=== PATIENT | female | born 1945 | race Caucasian/White ===

== ENCOUNTER 2020-11-23 17:38 | Observation (INO) | payer MEDICARE, OTHER ==
[~2020-11-23] VITALS: Ht 154.9 cm; Wt 61.2 kg
[~2020-11-23 17:38] MED LIST: ZOFRAN4 MG PO
[2020-11-23 17:55] LABS: HEMOGLOBIN 13.2 gm/dl (12.3-15.3); RED BLOOD COUNT 4.52 M/UL (4.00-5.10); WHITE BLOOD COUNT 10.2 K/UL (4.5-11.0)
[2020-11-23 18:16] LABS: BUN/CREATININE RATIO 18 (0-10)
[2020-11-24] MEDS ORDERED: LEVOTHYROXINE75 MC1 PO (03:50)
[2020-11-24] MEDS ORDERED: PROTONIX40 MG PO (03:50)
[2020-11-24] MEDS ORDERED: COREG 12.5MG12.5 MG PO (03:51)
[2020-11-24] MEDS ORDERED: HYDROCHLOROTHIA25 MG PO (03:52)
[2020-11-24] MEDS ORDERED: COZAAR100 MG PO (03:52)
[2020-11-24] MEDS ORDERED: GLUCOPHAGE 500500 MG PO (03:52)
[2020-11-24] MEDS ORDERED: PRAVASTATIN SOD20 MG PO (03:53)
[2020-11-24] MEDS ORDERED: VITAMIN D31250 MCG PO (03:55)
[2020-11-25] MEDS ORDERED: IBUPROFEN600 MG PO (09:03)
[2020-11-25] MEDS ORDERED: CYCLOBENZAPRINE10 MG PO (09:03)
== END 2020-11-25 12:50 | disposition home or self-care (01) ==
LOC: ER1 17:38 → MED SURG 4 21:36 → CDU 21:36 → MED SURG 4 11-24 03:40
PROVIDERS: ADMIT Surgery
DX: S22.41XA Multiple fractures of ribs, right side, initial encounter for closed fracture (principal); J98.11 Atelectasis; I11.0 Hypertensive heart disease with heart failure; I50.9 Heart failure, unspecified; E11.9 Type 2 diabetes mellitus without complications; R00.0 Tachycardia, unspecified; R60.9 Edema, unspecified; E03.9 Hypothyroidism, unspecified; Z20.822 Contact with and (suspected) exposure to COVID-19; Z79.84 Long term (current) use of oral hypoglycemic drugs; Z79.899 Other long term (current) drug therapy; Z88.1 Allergy status to other antibiotic agents; W10.9XXA Fall (on) (from) unspecified stairs and steps, initial encounter; Y93.01 Activity, walking, marching and hiking
CPT/HCPCS: 70450; 71046; 71111; 71260; 80053; 84132; 85025; 96372; 96374; 96375; 97162; 97530; 99285; G0378; J1650; J2270; J2405; Q9967; U0002